=== PATIENT | female | born 1990 | race Caucasian/White ===

== ENCOUNTER 2020-04-03 17:33 | Emergency (ER) | payer OTHER ==
[~2020-04-03] VITALS: Ht 157.5 cm; Wt 57.5 kg
--- NOTE | 2020-04-03 18:10 | NUR ---
SINCE THIS MORNING N/V/D. TOOK A HALF XANAX AND TRIED TO SLEEP. PT FEELS LIKE SHE CAN'T GET A DEEP BREATH. PT STATES SHE FELT CLAMMY TODAY. PT CONTACTED HER PRIMARY CARE WHO TOLD HER TO COME TO ER TO BE TESTED FOR COVID
--- NOTE | 2020-04-03 18:46 | NUR ---
CONTIUES TO AWAIT PROVIDER EVAL
[2020-04-03] MEDS ORDERED: ONDANSETRON 2MG/ML, 2ML IVPush ONE (19:00)
[2020-04-03] MEDS ORDERED: SODIUM CHLORIDE FLUSH 10ML SYR IVF ONE (19:00)
[2020-04-03] MEDS ORDERED: FAMOTIDINE 20 MG/2 ML IV ONE (19:00)
[2020-04-03] MEDS ORDERED: SODIUM CHLORIDE 0.9% 1,000ML IVBOLUS ONE (19:00)
[2020-04-03] MEDS ORDERED: ONDANSETRON 2MG/ML, 2ML ONE (19:05)
[2020-04-03] MEDS ORDERED: FAMOTIDINE 20 MG/2 ML ONE (19:06)
--- NOTE | 2020-04-03 19:07 | NUR ---
REPORT TO MEGAN PALMER
[2020-04-03 19:16] LABS: BASOPHILS # (AUTO) 0.02 x10^3/uL (0-0.1); BASOPHILS % (AUTO) 0 % (0-1); EOSINOPHILS % (AUTO) 0 % (1-7); LYMPHOCYTES # (AUTO) 0.76 x10^3/uL (1-3.4); LYMPHOCYTES % (AUTO) 7 % (22-44); MD NO; MEAN CORPUSCULAR HEMOGLOBIN 32.9 pg (27.0-34.8); MEAN CORPUSCULAR HGB CONC 34.4 g/dL (32.4-35.8); MEAN CORPUSCULAR VOLUME 95.6 fL (80-100); MEAN PLATELET VOLUME 8.2 fL (7.4-10.4); MONOCYTES # (AUTO) 0.19 x10^3/uL (0.2-0.8); MONOCYTES % (AUTO) 2 % (2-9); NEUTROPHILS # (AUTO) 9.75 x10^3/uL (1.8-6.8); NEUTROPHILS % (AUTO) 91 % (42-75); PLATELET COUNT 232 x10^3/uL (130-400); RED BLOOD COUNT 4.42 x10^6/uL (3.82-5.3)
--- NOTE | 2020-04-03 19:24 | NUR ---
Report received from SPENCER Paz. This RN to assume care. IV established. Meds admin per jan. Awaiting lab results.
[2020-04-03 19:28] LABS: ALANINE AMINOTRANSFERASE 31 U/L (12-78); ALBUMIN 4.9 g/dL (3.4-5.0); ANION GAP 9 mmol/L (5-15); CALCIUM 9.3 mg/dL (8.5-10.1); CHLORIDE 108 mmol/L (98-107); CREATININE 0.86 mg/dL (0.55-1.02)
[2020-04-03 19:32] LABS: ALKALINE PHOSPHATASE 41 U/L (45-117); BILIRUBIN,TOTAL 0.6 mg/dL (0.2-1.0); TOTAL PROTEIN 7.9 g/dL (6.4-8.2)
--- NOTE | 2020-04-03 19:52 | NUR ---
Patient feels slightly better after the meds.
[2020-04-03 20:04] LABS: MICROSCOPIC INDICATED
[2020-04-03 20:18] LABS: CULTURE INDICATED? YES
[2020-04-03 20:23] VITALS: BP 109/48
--- NOTE | 2020-04-03 20:25 | NUR ---
Water provided for PO challenge. Patient states she is not nauseous anymore but her stomach is still uncomfortable.
--- NOTE | 2020-04-03 21:06 | NUR ---
TASK RN: PT REPORTS IMPROVEMENT IN NAUSEA/PAIN. DC EDUCATION PROVIDED PT DEMONSTRATES UNDERSTANDING. PT AMBULATED STEADILY TO DC WITH RN
== END 2020-04-03 21:08 | disposition home or self-care (01) ==
LOC: ED 18:29
DX: R11.2 Nausea with vomiting, unspecified (principal); R19.7 Diarrhea, unspecified; R10.13 Epigastric pain; F17.210 Nicotine dependence, cigarettes, uncomplicated
CPT/HCPCS: 36415; 71045; 80053; 81001; 83690; 84703; 85025; 87086; 93005; 96374; 96375; 99285; J2405; J3490; J7030